=== PATIENT | female | born 1960 | race Caucasian/White ===

== ENCOUNTER 2018-05-03 08:40 | Inpatient (IN) | payer MEDICARE ==
[2018-05-03 09:34] LABS: ALT (SGPT) 126 U/L (8-55); AST (SGOT) 60 U/L (5-34); Albumin 4.7 g/dL (3.5-5.0); Alkaline Phosphatase 190 U/L (40-150); Anion Gap 16 mmol/L (10-20); BUN (Urea Nitrogen) 17 mg/dL (9.8-20.1); Bilirubin, Total 0.6 mg/dL (0.2-1.2); CK (CPK) 83 U/L (29-168); Calc. Creatinine Clearance 0 mL/min (70-130); Calcium 10.1 mg/dL (7.8-10.44); Carbon Dioxide 23 mmol/L (22-29); Chloride 104 mmol/L (98-107); Estimated GFR-MDRD 60; Globulin 2.9 g/dL (2.4-3.5); Glucose 111 mg/dL (70-105); Lipase 65 U/L (8-78); Potassium 3.9 mmol/L (3.5-5.1); Protein, Total 7.6 g/dL (6.0-8.3); Sodium 139 mmol/L (136-145)
[2018-05-03 09:38] LABS: CKMB 1.7 ng/mL (0-6.6); Troponin I Less than 0.010 ng/mL (< 0.028)
[2018-05-03 09:40] LABS: #Basophils 0.2 thou/uL (0.0-0.2); #Eosinphils 0.3 thou/uL (0.0-0.7); #Lymphocytes 4.2 thou/uL (1.20-3.40); #Monocytes 0.7 thou/uL (0.11-0.59); #Neutrophils 6.8 thou/uL (1.40-6.50); %Basophils 1.4 % (0.0-1.0); %Eosinophils 2.4 % (0.0-10.0); %Lymphocytes 34.5 % (21.0-51.0); %Monocytes 5.4 % (0.0-10.0); %Neutrophils 56.2 % (42.0-75.0); Mean Corpuscular HGB CONC 33.4 g/dL (32.0-36.0); Mean Corpuscular Hemoglobin 30.8 pg (27.0-31.0); Mean Corpuscular Volume 92.2 fL (78.0-98.0); Mean Platelet Volume 7.4 fL (7.4-10.4); Platelet Count 377 thou/uL (130-400); RBC Distribution Width 14.4 % (11.5-14.5); Red Blood Cell (RBC) Count 5.18 mill/uL (4.20-5.40)
[2018-05-03] MEDS ORDERED: Nitroglycerin 2% Ointment 1 INCH/1 GM Packet ONE (09:41)
[2018-05-03] MEDS ORDERED: Labetalol HCl 100 MG/20 ML VIAL ONE (10:26)
[2018-05-03] MEDS ORDERED: ISOVUE-370 76%-LOCM 1 ML ONE (10:47)
[2018-05-03 12:19] LABS: CKMB 1.8 ng/mL (0-6.6); Troponin I 0.032 ng/mL (< 0.028)
--- NOTE | 2018-05-03 12:21 | RAD ---
RADIOGRAPH CHEST 1 VIEW: HISTORY: A 57-year-old female with chest pain. FINDINGS: There are no air space densities, pulmonary edema, pneumothorax, or cardiomegaly. The lateral costop hrenic angles are sharp. IMPRESSION: No acute cardiopulmonary findings. jn [] POS: ELLI
--- NOTE | 2018-05-03 13:43 | CT ---
CTA THORAX WITH CONTRAST CTA ABDOMEN WITH CONTRAST: (Computed Tomographic Angiography, chest(noncoronary) with contrast material, and image postprocessin g) (Computed Tomographic Angiography, abdomen with contrast material, and image postprocessing) DATE: 05/03/18. HISTORY: A 57-year-old female with chest pain. Rule out thoracic and abdominal aortic aneurysm or dissection. TECHNIQUE: IV injection of iodinated contrast: 100 mL of Isovue 370. Arterial phase bolus chasing technique. Scan acquisition from top of top of aortic arch to iliac crests. 3D MIP reconstructions. FINDINGS: There is mild ectasia and tortuosity of the thoracic aorta, but no aneurysm or dissection there. The re is moderate to severe atherosclerosis with calcified and noncalcified plaque throughout the infrar enal abdominal aorta, which is tortuous and ectatic. There is a focal sacular left lateral and anter ior outpouching of the infrarenal abdominal aorta. The cross-sectional AP and oblique transverse dim ensions are 2.5 x 2.2 cm. No dissection. The prominent atherosclerotic disease extends into the anselmo ateral common iliac arteries and into the proximal aspects of the internal iliac arteries. No high-g rade stenosis of the celiac artery, superior mesenteric artery, or bilateral main renal arteries. Th ere is an accessory right renal artery supplying the lower pole of the right kidney, originating from the right side of the abdominal aorta 4 cm inferior to the origin of the right renal upper pole brook l artery. The right kidney is elongated in the craniocaudal dimension. No hydronephrosis. Diffusel y heterogeneous enhancement of the liver, probably due to perfusion anomalies and/or heterogeneously distributed fatty liver. No splenomegaly. Normal pancreas. No adrenal nodule. No small bowel dila tion. No pleural effusion or pneumothorax. Lung apices were not included on this scan. No consolid ation or pulmonary edema. No mediastinal or hilar lymphadenopathy. There happens to be excellent IV contrast opacification of the pulmonary arteries, in addition to the aorta. There is no pulmonary t hromboembolism. Thoracic and lumbar vertebral body heights are maintained, with no compression fracture. IMPRESSION: 1. No aortic aneurysm, dissection, or rupture. 2. Moderately severe atherosclerosis of distal, infrarenal abdominal aorta, where there is a saccula r dilation, which does not quite have the dimension of aneurysm. 3. Hepatic steatosis. 4. No acute findings. jn[] POS: ELLI
--- NOTE | 2018-05-03 14:26 | PDOC.FPRHP ---
- History of Present Illness Chief Complaint: chest pain History of Present Illness: 57 yo F with PMH of cardiac cath with stent placement in 2017 presents with acute onset of left sided substernal chest pressure and mid-back pain. At around 0900 this morning she was walking when she experienced acute onset of substernal chest pressure and concomitant mid-back pain. The back pain was started in the midback and radiated to down her left arm and up her left jaw. She had associated SOB, ALAS, vision floaters and nausea; denied diaphoresis. No aggravating or alleviating factors. She rated the pain as 14/10. She was able to walk back home, take a dose of nitro which did not relieve the pain. She took her blood pressure which was "really high" and prompted her to come to the ED. She reports compliance with all of her cardiac home meds and was able to take her morning dose of all meds. ED Course: In the ED she received Nitro, nitro paste and morphine with no relief of pain. Her initial blood pressures were in the 200s and decreased with IV labetalol 10 down to 160s, but increased back up to 190s. CTA was negative for aortic dissection and PE. EKG showed bifascicular block, no ST segment elevations. Initial trops were negative. Subsequent trop trends were positive which qualified her for STEMI. She also complained of SOB and has a hx of COPD so was given duonebs x1 with clinical improvement. - Allergies/Adverse Reactions Allergies Allergy/AdvReac Type Severity Reaction Status Date / Time adhesive Allergy Verified 05/03/18 16:53 amlodipine Allergy Verified 05/03/18 16:25 levofloxacin [From Levaquin] Allergy Verified 05/03/18 16:25 lithium Allergy Verified 05/03/18 16:25 penicillamine Allergy Verified 05/03/18 16:25 - Home Medications Medication Instructions Recorded Confirmed Type Aspirin [Aspirin Chewable] 81 mg PO DAILY 05/03/18 05/03/18 History FLUoxetine HCl 20 mg PO DAILY 05/03/18 05/03/18 History Fluticasone/Vilanterol [Breo 200 mcg INH DAILY 05/03/18 05/03/18 History Ellipta 200-25 Mcg INH] Metoprolol Tartrate 25 mg PO BID 05/03/18 05/03/18 History Montelukast Sodium 10 mg PO HS 05/03/18 05/03/18 History Pramipexole Di-HCl [Pramipexole 0.5 mg PO QPM 05/03/18 05/03/18 History Dihydrochloride] Promethazine [Phenergan] 25 mg PO Q6HR PRN 05/03/18 05/03/18 History QUEtiapine Fumarate [Seroquel] 25 mg PO 05/03/18 History Ticagrelor [Brilinta] 90 mg PO BID 05/03/18 05/03/18 History Ventolin HFA Inhaler 90 mcg INH Q4HR PRN 05/03/18 05/03/18 History clonazePAM [Clonazepam] 1 mg PO 05/03/18 History - History PMHx:COPD, cardiac cath with stents x4, PTSD, anxiety, depression, bipolar, HLD , HTN PSHx: RUE extremity plates, rotator cuff surgery x2, bladder suspension, cholecytectomy, umbilical hernia repair FHx:[place] in 2 other sisters Social: 4 cigs/day x 17 years, 1-2 beers during the week, uses CBD oil - Review of Systems General: denies: fever/chills, weight/appetite/sleep changes Eyes: reports: vision changes ENT: reports: nasal congestion. denies: rhinorrhea Respiratory: reports: shortness of breath. denies: cough, congestion Cardiovascular: reports: chest pain (chest pressure) Gastrointestinal: reports: nausea, constipation, abdominal pain. denies: vomiting, diarrhea Skin: denies: rashes, lesions Musculoskeletal: reports: pain (back pain). denies: tenderness Neurological: denies: numbness, syncope Psychological: reports: anxiety - Vital signs BP: 151/103 HR: 85 RR: 14 Tmax: 97.2 Pox: 99% on 2 LPM Wt: [54.2] - Physical Exam Constitutional: awake, alert and oriented -Constitutional: acute distress due to pain HEENT: normocephalic and atraumatic Neck: supple Chest: no-tender to palpation Heart: RRR, normal S1/S2 Lungs: CTAB, no respiratory distress Abdomen: soft, no masses/distention, no hernias -Abdomen: epigastric tendrenss to palpation, hyperactive bowel sounds Musculoskeletal: normal structure -Musculoskeletal: back pain worse with palpation Neurological: CN II-XII intact Skin: no rash/lesions Heme/Lymphatic: no unusual bruising or bleeding FMR H&P: Results - Labs Result Diagrams: 05/06/18 04:33 05/06/18 04:33 Lab results: WBC 12.0 thou/uL (4.8-10.8) H 05/03/18 08:50 Hgb 16.0 g/dL (12.0-16.0) 05/03/18 08:50 Hct 47.8 % (36.0-47.0) H 05/03/18 08:50 MCV 92.2 fL (78.0-98.0) 05/03/18 08:50 Plt Count 377 thou/uL (130-400) 05/03/18 08:50 Neutrophils % 56.2 % (42.0-75.0) 05/03/18 08:50 Sodium 139 mmol/L (136-145) 05/03/18 08:50 Potassium 3.9 mmol/L (3.5-5.1) 05/03/18 08:50 Chloride 104 mmol/L (98-107) 05/03/18 08:50 Carbon Dioxide 23 mmol/L (22-29) 05/03/18 08:50 BUN 17 mg/dL (9.8-20.1) 05/03/18 08:50 Creatinine 0.95 mg/dL (0.6-1.1) 05/03/18 08:50 Glucose 111 mg/dL (70-105) H 05/03/18 08:50 Calcium 10.1 mg/dL (7.8-10.44) 05/03/18 08:50 Total Bilirubin 0.6 mg/dL (0.2-1.2) 05/03/18 08:50 AST 60 U/L (5-34) H 05/03/18 08:50 ALT 126 U/L (8-55) H 05/03/18 08:50 Alkaline Phosphatase 190 U/L (40-150) H 05/03/18 08:50 Creatine Kinase 83 U/L (29-168) 05/03/18 08:50 CK-MB (CK-2) 1.8 ng/mL (0-6.6) 05/03/18 11:42 Serum Total Protein 7.6 g/dL (6.0-8.3) 05/03/18 08:50 Albumin 4.7 g/dL (3.5-5.0) 05/03/18 08:50 Lipase 65 U/L (8-78) 05/03/18 08:50 - EKG Interpretation EKG: RRR, no ST elevations - Radiology Interpretation CT scan - chest Status: report reviewed by me (no CTA, no PE, no bowel dilation) FMR H&P: A/P - Problem List (1) NSTEMI (non-ST elevated myocardial infarction) Current Visit: Yes Status: Acute Code(s): I21.4 - NON-ST ELEVATION (NSTEMI) MYOCARDIAL INFARCTION (2) COPD (chronic obstructive pulmonary disease) Current Visit: Yes Status: Acute (3) Bipolar 1 disorder Current Visit: Yes Status: Acute Code(s): F31.9 - BIPOLAR DISORDER, UNSPECIFIED (4) Depression Current Visit: Yes Status: Acute Code(s): F32.9 - MAJOR DEPRESSIVE DISORDER , SINGLE EPISODE, UNSPECIFIED (5) Anxiety Current Visit: Yes Status: Acute Code(s): F41.9 - ANXIETY DISORDER, UNSPECIFIED (6) Hyperlipidemia Current Visit: Yes Status: Acute Code(s): E78.5 - HYPERLIPIDEMIA, UNSPECIFIED - Plan 48 yo F with h/o of cardiac cath with stents x4 here with hypertensive urgency and NSTEMI 1. NSTEMI -Cardiology consulted, appreciate recs -Nitro drip started for persistent chest pressure -Trend troponins -Aspirin, Brilinta, Th lovenox -Echo *Hold on statin, pt. reported history of being in "comatose state" and doesn't want to take it 2. Hypertensive urgency -Goal BP <160/<100 -Hydralazine and labetalol PRN -Continue home metoprolol, will receive evening dose 3. Hx of drug abuse -UDS 4. HLD -not on statin for above mentioned reasoned 5. COPD -Continue home meds -Will add on duonebs prn and mucolytic -Will continue NC at 2LPM 6. Bipolar disorder -Continue home meds 7. Depression -Continue home meds 8. Anxiety -Continue klonipin 1mg po BID 9. Gastritis -Home meds 10. RLS -Home meds DVT ppx: Th lovenox GI ppx: Pantoprazole FMR H&P: Upper Level - Plan Date/Time: 05/03/181425 I, [], have evaluated this patient and agree with findings/plan as outlined by medical intern resident. Pertinent changes/additions are listed here. Attending Addendum - Attending Addendum Date/Time: 05/03/181428 I personally evaluated the patient and discussed the management with Dr. Tijerina and Dr. Moses I agree with the History, Examination, Assessment and Plan documented above with any addition or exceptions noted below. 57 yo female with multiple medical conditions including significant cardiovascular disease with known CAD presents to ER for evaluation of typical CP. Patient reports this AM during a morning walk she experience substernal radiated chest pressure. Rated 10/10 to 14/10 pain. Radiated to left arm, left jaw, and between her shoulder blades. Associated with nausea and SOB. States feels similar to chest pain in the past prior to stent placement. Reports once she made it back home she took her BP which was "very high." Patient did not remember number. State took all medications this AM. Proceed to walk to ER for evaluation. Denies palpitations, dizziness, vomiting, diaphoresis. VS reviewed. Labs reviewed. Imaging reviewed. GEN: In no acute distress on exam. Lungs: CTA bilaterally. No wheezing or crackles. Currently receiving Neb. CV: RRR, no murmurs. JVD pos. No bruits. HTN urgency with known CAD: Admit to IMCU. Continue to control BP with IV meds and oral. Place on CCB drip as needed. Trend trop levels to rule out NSTEMI. CT negative. Continue home meds including BB and antiplatelet. Patient refusing statin due reported side effect of "comatosed state." Trend tele monitoring and EKGs. Check TSH and UDS. ECHO. Possible cards consult vs medical stress. However , due to all physical activity not sure if patient has significant obstruction but will continue to trend trop and EKG. Hepatic steatosis: Elevated LFTs. Trend. Discuss diet, medication and alcohol use. Rule out viral causes. Substance abuse: Daily and chronic tobacco and cannibus use. UDS pending. Obtain card records from previous transfusion nurse. Amy
[2018-05-03] MEDS ORDERED: Guaifenesin DM 100-10/5 ML UDCUP PO PRN (14:39)
[2018-05-03] MEDS ORDERED: Ondansetron ODT 4 MG TAB PO PRN (14:39)
[2018-05-03] MEDS ORDERED: Acetaminophen 325 MG TAB PO PRN (14:39)
[2018-05-03] MEDS ORDERED: Labetalol HCl 100 MG/20 ML VIAL SLOW IVP PRN (14:51)
[2018-05-03] MEDS ORDERED: Labetalol HCl 100 MG/20 ML VIAL SLOW IVP SCH (15:00)
[2018-05-03 15:50] LABS: Troponin I 0.346 ng/mL (< 0.028)
[2018-05-03 16:36] VITALS: BMI 21.2
[2018-05-03] MEDS ORDERED: Aspirin 300 MG Suppository PR SCH (17:00)
[2018-05-03] MEDS ORDERED: Nitroglycerin 50 MG/250 ML BOT 250 ML IVPB SCH (17:15)
[2018-05-03] MEDS ORDERED: hydrALAZINE 20 MG/ML VIAL SLOW IVP PRN (17:24)
[2018-05-03 17:48] LABS: Medtox Reader # READER 1; THC/Cannabinoid Screen Detected (NotDetected)
[2018-05-03 17:49] LABS: Amphetamine Not Detected (NotDetected); Barbiturates Screen Not Detected (NotDetected); Benzodiazepine Screen Detected (NotDetected); Cocaine Metabolite Screen Not Detected (NotDetected); Medtox Control Line Valid? VALID (VALID); Methadone Not Detected (NotDetected); Methamphetamine Not Detected (NotDetected); Opiate Screen Not Detected (NotDetected); Oxycodone Screen Not Detected (NotDetected); Phencyclidine (PCP) Not Detected (NotDetected); Tricyclic Screen Not Detected (NotDetected)
[2018-05-03] MEDS ORDERED: Promethazine HCl 25 MG/ML VIAL IM/IV ONE (18:43)
[2018-05-03] MEDS ORDERED: diphenhydrAMINE 50 MG/ML VIAL IVP SCH (18:44)
[2018-05-03 19:39] LABS: Troponin I 0.598 ng/mL (< 0.028)
[2018-05-03] MEDS: Montelukast Sodium 10 mg Tablet PO SCH (20:33)
[2018-05-03] MEDS: Enoxaparin Sodium 60 MG/0.6 ML SYRINGE SC SCH (20:33)
[2018-05-03] MEDS: clonazePAM 1 MG TAB PO SCH (20:33)
[2018-05-03] MEDS: Pramipexole Di-HCl 0.25 MG TAB PO SCH (20:43)
[2018-05-03] MEDS: TICAGRELOR 90 MG TABLET PO SCH (20:43)
[2018-05-03] MEDS: Metoprolol Tartrate 50 MG TAB PO SCH (20:47)
[2018-05-03 23:12] LABS: Critical Call Chem Troponin I RESULT DECREASING; Troponin I 0.536 ng/mL (< 0.028)
[2018-05-04 05:19] LABS: #Basophils 0.1 thou/uL (0.0-0.2); #Eosinphils 0.2 thou/uL (0.0-0.7); #Lymphocytes 1.6 thou/uL (1.20-3.40); #Monocytes 0.5 thou/uL (0.11-0.59); #Neutrophils 4.7 thou/uL (1.40-6.50); %Basophils 0.9 % (0.0-1.0); %Eosinophils 2.5 % (0.0-10.0); %Lymphocytes 22.6 % (21.0-51.0); %Monocytes 7.1 % (0.0-10.0); %Neutrophils 66.9 % (42.0-75.0); Hemoglobin 14.9 g/dL (12.0-16.0); Mean Corpuscular HGB CONC 33.1 g/dL (32.0-36.0); Mean Corpuscular Hemoglobin 31.2 pg (27.0-31.0); Mean Platelet Volume 7.7 fL (7.4-10.4); Platelet Count 301 thou/uL (130-400); RBC Distribution Width 14.3 % (11.5-14.5); Red Blood Cell (RBC) Count 4.79 mill/uL (4.20-5.40)
[2018-05-04 05:33] LABS: ALT (SGPT) 242 U/L (8-55); AST (SGOT) 212 U/L (5-34); Albumin 4.2 g/dL (3.5-5.0); Alkaline Phosphatase 238 U/L (40-150); Anion Gap 14 mmol/L (10-20); BUN (Urea Nitrogen) 12 mg/dL (9.8-20.1); Bilirubin, Total 0.7 mg/dL (0.2-1.2); Calc. Creatinine Clearance 68 mL/min (70-130); Calcium 9.5 mg/dL (7.8-10.44); Carbon Dioxide 23 mmol/L (22-29); Cardiac Risk 4.9 (Less than 4.5); Chloride 107 mmol/L (98-107); Cholesterol 321 mg/dl (< 200 Desired); Estimated GFR-MDRD 78; Globulin 2.8 g/dL (2.4-3.5); Glucose 108 mg/dL (70-105); HDL Cholesterol 65 mg/dL (>60 Neg Risk); LDL Cholesterol, Calculated 217 mg/dL; Potassium 4.4 mmol/L (3.5-5.1); Sodium 140 mmol/L (136-145); Triglycerides 195 mg/dL (Less than 150)
[2018-05-04 05:38] LABS: CKMB 5.8 ng/mL (0-6.6); Troponin I 0.229 ng/mL (< 0.028)
--- NOTE | 2018-05-04 06:33 | PDOC.FM ---
- Subjective Subjective: No acute events overnight. Still has left sided chest pressure but improved / 10 from 04/07. Still has epigastric pain, improved. nitro drip was started yesterday but discontinued b/c chest pressure had resolved, per nurse. was being given morhpine x1 for CPressure, instructed to put back on nitro drip if morhpine doesn't resolve pressure - Objective MAR Reviewed: Yes Vital Signs & Weight: Vital Signs (12 hours) Temp Pulse Resp Pulse Ox 05/04/18 03:00 98.0 F 05/03/18 23:36 96 05/03/18 23:00 98.3 F 05/03/18 19:15 97.5 F L 75 17 97 05/03/18 19:00 97.5 F L 05/03/18 18:36 85 Weight Weight 54.2 kg Most Recent Monitor Data Heart Rate from ECG 61 NIBP 110/68 NIBP BP-Mean 77 Respiration from ECG 23 SpO2 97 I&O: 05/02/18 05/03/18 05/04/18 06:59 06:59 06:59 Intake Total 102.8 Output Total 450 Balance -347.2 Result Diagrams: 05/04/18 04:59 05/04/18 04:59 <Dee Tijerina - Last Filed: 05/04/18 11:29> - Objective Vital Signs & Weight: Vital Signs (12 hours) Temp Pulse Resp Pulse Ox 05/04/18 08:12 98.6 F 05/04/18 08:00 98.6 F 75 16 98 05/04/18 03:00 98.0 F Weight Weight 54.2 kg Most Recent Monitor Data Heart Rate from ECG 63 NIBP 101/67 NIBP BP-Mean 85 Respiration from ECG 10 SpO2 96 I&O: 05/03/18 05/04/18 05/05/18 06:59 06:59 06:59 Intake Total 102.8 Output Total 450 150 Balance -347.2 -150 Result Diagrams: 05/04/18 04:59 05/04/18 04:[address] <[address] - Last Filed: 05/04/18 13:00> Phys Exam - Physical Examination mild distress HEENT: TM's clear Neck: supple left cervical tenderness Cardiovascular: RRR tenderness to palpation at mid thoracic spine and approximate paraspinal mm Neurological: moves all 4 limbs Psychiatric: A&O x 3 Skin: no rash, cap refill <2 seconds <Dee Tijerina - Last Filed: 05/04/18 11:29> Dx/Plan (1) NSTEMI (non-ST elevated myocardial infarction) Code(s): I21.4 - NON-ST ELEVATION (NSTEMI) MYOCARDIAL INFARCTION Status: Acute (2) COPD (chronic obstructive pulmonary disease) Status: Acute (3) Bipolar 1 disorder Code(s): F31.9 - BIPOLAR DISORDER, UNSPECIFIED Status: Acute (4) Depression Code(s): F32.9 - MAJOR DEPRESSIVE DISORDER, SINGLE EPISODE, UNSPECIFIED Status : Acute (5) Anxiety Code(s): F41.9 - ANXIETY DISORDER, UNSPECIFIED Status: Acute (6) Hyperlipidemia Code(s): E78.5 - HYPERLIPIDEMIA, UNSPECIFIED Status: Acute - Plan Plan: 48 yo F with h/o of cardiac cath with stents x4 here with hypertensive urgency and NSTEMI 1. NSTEMI -Cardiology consulted, appreciate recs -Aspirin, Brilinta, Th lovenox, nitro drip for persistent chest pressure -Trops down trending, recheck trop at 0800 -Echo pending *Hold on statin, pt. reported history of being in "comatose state" and doesn't want to take it. Discussed with patient -cath today 2. Hypertensive urgency -stable -Hydralazine and labetalol PRN -Nitro drip -Continue home metoprolol, will receive evening dose 3. Back pain -most likely MSK due to paraspinal tenderness -h/o of torticollis -will try flexeril 3. Hx of drug abuse -UDS + for cannabinoids, benzos -non contributory to chest pain 4. HLD -not on statin for above mentioned reasoned 5. COPD -Continue home meds -duonebs prn and mucolytic 6. Bipolar disorder -Continue home meds 7. Depression -Continue home meds 8. Anxiety -Continue klonipin 1mg po BID 9. Gastritis -protonix 10. RLS -Home meds DVT ppx: Th lovenox GI ppx: Pantoprazole Discussed with Dr. St <Dee Tijerina - Last Filed: 05/04/18 11:29> Attending Addendum - Attending Addendum Date/Time: 05/04/18 [id number] I personally evaluated the patient and discussed the management with Dr. Tijerina. I agree with the History, Examination, Assessment and Plan documented above with any addition or exceptions noted below. Patient with nstemi on nigtro drip in ICU. She is still having chest pain and drip has been increased. Cardiology is planning cath later today. <Aide St - Last Filed: 05/04/18 13:00>
[2018-05-04] MEDS: clonazePAM 1 MG TAB PO SCH ×2 (07:56→20:05)
[2018-05-04] MEDS: Metoprolol Tartrate 50 MG TAB PO SCH ×2 (07:56→21:05)
[2018-05-04] MEDS: FLUoxetine HCl 20 MG CAP PO SCH (07:57)
[2018-05-04] MEDS: TICAGRELOR 90 MG TABLET PO SCH ×3 (08:18→20:06)
[2018-05-04] MEDS: Enoxaparin Sodium 60 MG/0.6 ML SYRINGE SC SCH ×2 (08:18→20:05)
[2018-05-04 08:44] LABS: Troponin I 0.205 ng/mL (< 0.028)
[2018-05-04] MEDS ORDERED: Enoxaparin Sodium 40 MG/0.4 ML SYRINGE SC SCH (09:00)
[2018-05-04] MEDS ORDERED: Iopamidol 370 76% 100 ML VIAL ONE (10:20)
--- NOTE | 2018-05-04 11:31 | CON ---
DATE OF CONSULTATION: 05/04/2018 HISTORY: This is a 57-year-old female from [place], moved to the local area to stay with his sis joaquin. She developed chest pain, shortness of breath yesterday lasting for 45 minutes. Pain was simil ar to her previous [place] 09/2016. She has 4 stents inserted. She is still smoking half a pack a day. She has COPD. Denies any difficulty breathing, fever, or ch ills. She was admitted to the ICU, the reason for consultation. PAST MEDICAL HISTORY: Coronary artery disease, hypertension, bipolar, COPD, hyperlipidemia. PAST SURGICAL HISTORY: Multiple abdominal surgeries, hysterectomy, rotator cuff surgery. MEDICATIONS: Medicine from home includes aspirin 81, Prozac 20, Seroquel 50, Klonopin 1, metoprolol 50, Brilinta 90, Breo inhaler 100 once a day, Ventolin inhaler as needed. ALLERGIES: Multiple; AMLODIPINE, LEVAQUIN, LITHIUM, PENICILLAMINE. SOCIAL HISTORY: She is disabled from bipolar. REVIEW OF SYSTEMS: Otherwise unremarkable. PHYSICAL EXAMINATION: GENERAL: Awake, alert, responsive, in no distress. VITAL SIGNS: Blood pressure 150/70, pulse 80, respiratory 18, afebrile. CHEST: Chest revealed decreased breath sounds, no wheezing. CARDIAC: Normal S1, S2. No gallops. ABDOMEN: Soft, no masses. LABORATORY AND X-RAY FINDINGS: Chest x-ray is clear. White count 10,000, H&H 14 and 45. Electrolytes are normal. Liver function, elevated. AST is 212, ALT is 242. Troponin is elevated at 0.205. She has got benzos and cannabinoids in her system. IMPRESSION: 1. Chest pain, coronary artery disease, rule out myocardial infarction. 2. Tobacco abuse. 3. Chronic obstructive pulmonary disease. 4. Bipolar. 5. Major anxiety. PLAN: Continue present cardiac care. Pulmonary will follow while in the ICU. At this stage, I advi sed her to refrain from smoking. We will follow while in the ICU.
[2018-05-04] MEDS ORDERED: Lidocaine 1% (PF) 30 ML VIAL ONE ×2 (11:34→13:09)
[2018-05-04] MEDS ORDERED: Midazolam HCl 2 mg/2 ml Vial ONE (12:17)
[2018-05-04] MEDS ORDERED: Fentanyl 100 MCG/2 ML VIAL ONE (12:23)
[2018-05-04] MEDS ORDERED: traMADol HCl 50 MG TAB PO PRN (12:43)
[2018-05-04] MEDS ORDERED: Acetaminophen/Codeine 30-300mg Tablet PO PRN ×2 (12:43)
[2018-05-04] MEDS ORDERED: Nitroglycerin 0.4 MG TAB (25 Tab Bottle) SL PRN (12:43)
[2018-05-04] MEDS ORDERED: Sodium Chloride 0.9% 200 ML IV SCH (12:45)
--- NOTE | 2018-05-04 12:49 | CON ---
DATE OF CONSULTATION: 05/03/2018 This will be a critical care note, time will be 40 minutes. HISTORY OF PRESENT ILLNESS: The patient is a 57-year-old woman with a history of coronary artery disease, who presents with recurrent chest discomfort. The patient has previously suffered a myocardial infarction. She has undergone PTCA and stent placement. In September 2016 she had an OK in [place]. She was found to have a totally occluded left circumflex artery, 70% OM lesion and 70% mid LAD lesion ,and the right coronary artery was diffusely diseased. The patient underwent PTCA and stent placement in the left circumflex artery. The patient has subsequently been on medical therapy. She has had recurrent episodes of chest discomfort. She states that she was in another hospital in October of this year with recurrent chest discomfort. She underwent a repeat catheterization. There was found to be no significant progression in her coronary artery disease. The patient was continued on medical therapy. She has not been followed up closely with her member services representative. She recently moved to town. She presents with recurrent chest discomfort. PAST MEDICAL HISTORY: 1. Coronary artery disease. 2. Hypertension. 3. Dyslipidemia. 4. Bipolar disorder. 5. A history of pseudoaneurysm. PAST SURGICAL HISTORY; SOCIAL HISTORY: Long history of tobacco abuse. ALLERGIES: LEVOFLOXACIN, AMLODIPINE, ADHESIVE TAPE, LITHIUM, PENICILLAMINE. MEDICATIONS ON ADMISSION: Metoprolol 25 b.i.d., Brilinta 90 b.i.d., aspirin 81 daily, Prozac 20 daily, and Seroquel 25 daily. PHYSICAL EXAMINATION: GENERAL: Anxious woman in acute distress. VITAL SIGNS: Blood pressure 151/103. NECK: No jugular venous distention. LUNGS: Coarse breath sounds bilateral. HEART: Regular rate and rhythm. Normal S1 and S2. ABDOMEN: Nondistended. EXTREMITIES: Show no edema. LABORATORY DATA: Sodium 129, potassium 3.9, chloride 104, bicarbonate 23, BUN 17, creatinine is 0.95, glucose 111, AST was 126. CPK MB was 1.8, troponin 0.346. Her white blood cell count 12.0, hemoglobin 16.0, hematocrit 47.8, and her platelets were 377. Her EKG revealed her to have normal sinus rhythm with nonspecific intraventricular conduction delay, no acute ST-T-wave changes. IMPRESSION: 1. Hypertensive crisis. 2. Coronary artery disease. 3. History of percutaneous transluminal coronary angioplasty and stent placement. 4. Hypertension. 5. Dyslipidemia. 6. Bipolar disorder. This patient presents with a hypertensive crisis. Her cardiac enzymes revealed minimal elevation of her troponin level. The patient states she underwent a repeat catheterization just a few months ago, which did not show significant coronary artery disease. The patient, at this time, would like to initially be placed on medical therapy. The patient will be transferred to the ICU. She will be placed on IV nitroglycerin. Further recommendation will follow. SIMEON
[2018-05-04] MEDS ORDERED: Cyclobenzaprine 10 MG TAB PO SCH (16:30)
[2018-05-04] MEDS: Mometasone/Formoterol 120 PUFF INHALER INH SCH (18:33)
[2018-05-04] MEDS: Pramipexole Di-HCl 0.25 MG TAB PO SCH (20:05)
[2018-05-04] MEDS: Montelukast Sodium 10 mg Tablet PO SCH (20:05)
--- NOTE | 2018-05-04 20:31 | PDOC.EVN ---
Event Note - Event Note Event Note: had conversation with patient about starting her on a statin. explained to her the benefits and importance of taking the medication. discussed patients worries and addressed them but patient still refuses to take it understanding the risk of suffering from another cardiac event.
[2018-05-05] MEDS ORDERED: Cyclobenzaprine 10 MG TAB PO PRN (05:18)
[2018-05-05 05:19] LABS: #Basophils 0.1 thou/uL (0.0-0.2); #Eosinphils 0.3 thou/uL (0.0-0.7); #Monocytes 0.8 thou/uL (0.11-0.59); #Neutrophils 3.4 thou/uL (1.40-6.50); %Basophils 1.6 % (0.0-1.0); %Lymphocytes 39.7 % (21.0-51.0); %Monocytes 10.3 % (0.0-10.0); %Neutrophils 44.4 % (42.0-75.0); Mean Corpuscular HGB CONC 33.6 g/dL (32.0-36.0); Mean Corpuscular Hemoglobin 31.7 pg (27.0-31.0); Mean Corpuscular Volume 94.5 fL (78.0-98.0); Mean Platelet Volume 7.7 fL (7.4-10.4); Platelet Count 265 thou/uL (130-400); RBC Distribution Width 14.1 % (11.5-14.5); Red Blood Cell (RBC) Count 4.41 mill/uL (4.20-5.40); White Blood Cell (WBC) Count 7.6 thou/uL (4.8-10.8)
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
[2018-05-05 05:46] LABS: ALT (SGPT) 168 U/L (8-55); AST (SGOT) 118 U/L (5-34); Albumin 3.8 g/dL (3.5-5.0); Alkaline Phosphatase 216 U/L (40-150); Anion Gap 11 mmol/L (10-20); BUN (Urea Nitrogen) 9 mg/dL (9.8-20.1); Bilirubin, Total 0.6 mg/dL (0.2-1.2); Calc. Creatinine Clearance 72 mL/min (70-130); Carbon Dioxide 26 mmol/L (22-29); Chloride 105 mmol/L (98-107); Estimated GFR-MDRD 83; Globulin 2.4 g/dL (2.4-3.5); Glucose 108 mg/dL (70-105); Protein, Total 6.2 g/dL (6.0-8.3); Sodium 138 mmol/L (136-145)
[2018-05-05] MEDS: Enoxaparin Sodium 60 MG/0.6 ML SYRINGE SC SCH (08:26)
[2018-05-05] MEDS: clonazePAM 1 MG TAB PO SCH ×2 (08:26→20:41)
[2018-05-05] MEDS: TICAGRELOR 90 MG TABLET PO SCH ×2 (08:27→20:41)
[2018-05-05] MEDS: FLUoxetine HCl 20 MG CAP PO SCH (08:27)
[2018-05-05] MEDS: Mometasone/Formoterol 120 PUFF INHALER INH SCH ×2 (08:40→19:01)
--- NOTE | 2018-05-05 09:22 | PRG ---
DATE OF SERVICE: 05/05/2018 This morning she is awake, alert, responsive. Still having neck pain. She underwent a cardiac jaylon terization yesterday. Apparently I am told her stents were unremarkable. No new stents were placed. PHYSICAL EXAMINATION: VITAL SIGNS: Blood pressure 109/82, sats 96% on room air, respirations 18, pulse 80. CHEST: No wheezing. CARDIAC: Normal S1, S2, no gallops. ABDOMEN: Soft, no masses. LABORATORY: Abnormal LFTs noted. Otherwise, CBC unremarkable. Electrolytes are normal. IMPRESSION: 1. Coronary artery disease. 2. Chest pain. 3. Abnormal liver function tests. 4. Tobacco abuse. 5. Chronic obstructive pulmonary disease. PLAN: She can be transferred out of the ICU. Continue supportive care. She was told to refrain from smoking.
[2018-05-05] MEDS: Metoprolol Tartrate 50 MG TAB PO SCH ×3 (09:43→21:15)
[2018-05-05] MEDS: Methocarbamol 500 MG TAB PO PRN ×3 (09:47→21:15)
--- NOTE | 2018-05-05 11:44 | EKG ---
Test Reason : Blood Pressure : / mmHG Vent. Rate : 072 BPM Atrial Rate : 072 BPM P-R Int : 160 ms QRS Dur : 132 ms QT Int : 454 ms P-R-T Axes : 053 -67 104 degrees QTc Int : 497 ms Poor data quality, interpretation may be adversely affected Normal sinus rhythm Left bundle branch block Abnormal ECG No previous ECGs available Confirmed by AIDAN COONEY ([id number]) on 05/05/2018 11:44:20 AM Referred By: ОЛЕГ Confirmed By:AIDAN COONEY
--- NOTE | 2018-05-05 13:38 | ULT ---
FOCUSED VASCULAR ULTRASOUND OF THE LEFT INGUINAL REGION: DATE: 05/05/18. COMPARISON: None. HISTORY: Left catheterization yesterday, assess for hematoma or pseudoaneurysm. TECHNIQUE: Multiplanar, bo scale, sonographic imaging of the left inguinal vascular structures obtained with c olor flow and spectral analysis. FINDINGS: The left common femoral artery and the left common femoral vein are patent and demonstrate appropriat e arterial and venous waveforms respectively. There is no sonographic evidence of pseudoaneurysm or significant hematoma. IMPRESSION: Unremarkable focused vascular ultrasound of the left inguinal region. No sonographic evidence of sig nificant hematoma or arterial pseudoaneurysm. POS: [facility]
[2018-05-05 14:27] VITALS: BP 131/83
[2018-05-05] MEDS ORDERED: Methocarbamol 500 MG TAB PO PRN (15:52)
[2018-05-05] MEDS: Pramipexole Di-HCl 0.25 MG TAB PO SCH (20:40)
[2018-05-05] MEDS: Montelukast Sodium 10 mg Tablet PO SCH (20:41)
[2018-05-05] MEDS ORDERED: Rosuvastatin 20 MG TAB PO SCH (21:00)
[2018-05-05] MEDS ORDERED: Methocarbamol 500 MG TAB PO SCH ×2 (21:00)
[2018-05-05] MEDS ORDERED: diphenhydrAMINE 25 MG CAP PO PRN (23:41)
[2018-05-06 05:01] LABS: #Basophils 0.1 thou/uL (0.0-0.2); #Eosinphils 0.3 thou/uL (0.0-0.7); #Monocytes 0.9 thou/uL (0.11-0.59); #Neutrophils 4.3 thou/uL (1.40-6.50); %Basophils 1.3 % (0.0-1.0); %Eosinophils 3.2 % (0.0-10.0); %Lymphocytes 35.2 % (21.0-51.0); %Monocytes 10.2 % (0.0-10.0); %Neutrophils 50.2 % (42.0-75.0); Mean Corpuscular Hemoglobin 31.2 pg (27.0-31.0); Mean Corpuscular Volume 94.7 fL (78.0-98.0); Mean Platelet Volume 8.1 fL (7.4-10.4); Platelet Count 266 thou/uL (130-400); White Blood Cell (WBC) Count 8.5 thou/uL (4.8-10.8)
[2018-05-06 05:22] LABS: ALT (SGPT) 151 U/L (8-55); AST (SGOT) 98 U/L (5-34); Albumin 4.2 g/dL (3.5-5.0); Alkaline Phosphatase 221 U/L (40-150); Anion Gap 11 mmol/L (10-20); BUN (Urea Nitrogen) 8 mg/dL (9.8-20.1); Bilirubin, Total 0.6 mg/dL (0.2-1.2); Calc. Creatinine Clearance 65 mL/min (70-130); Carbon Dioxide 29 mmol/L (22-29); Chloride 106 mmol/L (98-107); Estimated GFR-MDRD 73; Globulin 2.9 g/dL (2.4-3.5); Glucose 106 mg/dL (70-105); Potassium 5.2 mmol/L (3.5-5.1); Protein, Total 7.1 g/dL (6.0-8.3); Sodium 141 mmol/L (136-145)
--- NOTE | 2018-05-06 06:15 | PDOC.FM ---
- Subjective Subjective: Pt. was crying in distress when I went to see her making claims "they think I"m trying to kill myself, why would they think that." She stated she was upset because she kept getting asked "do you want to hurt yourself" and said she was offended by that question that when she said she "was going to knock her head upside the wall" it was only a phrasing. She said chest pressure has resolved. Endorses left neck and back pain, significant improved with robaxin. No other complaints. - Objective MAR Reviewed: Yes Vital Signs & Weight: Vital Signs (12 hours) Temp Pulse Resp Pulse Ox 05/06/18 04:00 98.1 F 05/06/18 00:00 98.7 F 05/05/18 20:00 98.8 F 59 L 15 97 05/05/18 19:01 70 12 Weight Weight 54.2 kg Most Recent Monitor Data Heart Rate from ECG 59 NIBP 124/83 NIBP BP-Mean 100 Respiration from ECG 15 SpO2 97 I&O: 05/04/18 05/05/18 05/06/18 06:59 06:59 06:59 Intake Total 102.8 660 2150 Output Total 450 1100 2575 Balance -347.2 -440 -425 Result Diagrams: 05/06/18 04:33 05/06/18 09:31 <Dee Tijerina - Last Filed: 05/06/18 11:47> - Objective Vital Signs & Weight: Vital Signs (12 hours) Temp Pulse Resp 05/06/18 08:00 98.3 F 94 15 Weight Weight 54 kg Most Recent Monitor Data Heart Rate from ECG 68 NIBP 142/71 NIBP BP-Mean 98 Respiration from ECG 18 SpO2 97 I&O: 05/05/18 05/06/18 05/07/18 06:59 06:59 06:59 Intake Total 660 2150 600 Output Total 1100 2575 200 Balance -440 -425 400 Result Diagrams: 05/06/18 04:33 05/06/18 09:[address] <[address] - Last Filed: 05/06/18 19:43> Phys Exam - Physical Examination crying, upset, in distress HEENT: sclera anicteric, TM's clear Neck: supple Respiratory: no wheezing, no rales, no rhonchi, clear to auscultation bilateral Cardiovascular: RRR, no significant murmur Gastrointestinal: soft, non-tender Musculoskeletal: no edema, pulses present Neurological: non-focal, moves all 4 limbs Psychiatric: normal affect, A&O x 3 Skin: cap refill <2 seconds <BreezyDee - Last Filed: 05/06/18 11:47> Dx/Plan (1) NSTEMI (non-ST elevated myocardial infarction) Code(s): I21.4 - NON-ST ELEVATION (NSTEMI) MYOCARDIAL INFARCTION Status: Acute (2) COPD (chronic obstructive pulmonary disease) Status: Acute (3) Bipolar 1 disorder Code(s): F31.9 - BIPOLAR DISORDER, UNSPECIFIED Status: Acute (4) Depression Code(s): F32.9 - MAJOR DEPRESSIVE DISORDER, SINGLE EPISODE, UNSPECIFIED Status : Acute (5) Anxiety Code(s): F41.9 - ANXIETY DISORDER, UNSPECIFIED Status: Acute (6) Hyperlipidemia Code(s): E78.5 - HYPERLIPIDEMIA, UNSPECIFIED Status: Acute (7) NAFLD (nonalcoholic fatty liver disease) Status: Acute (8) PTSD (post-traumatic stress disorder) Code(s): F43.10 - POST-TRAUMATIC STRESS DISORDER, UNSPECIFIED Status: Acute (9) Gastritis Code(s): K29.70 - GASTRITIS, UNSPECIFIED, WITHOUT BLEEDING Status: Acute (10) Restless leg syndrome Status: Acute (11) Trapezius muscle spasm Code(s): M62.838 - OTHER MUSCLE SPASM Status: Acute (12) Passive suicidal ideations Code(s): R45.851 - SUICIDAL IDEATIONS Status: Acute - Plan Plan: 48 yo F with h/o of cardiac cath with stents x4 here with hypertensive urgency and NSTEMI 1. NSTEMI s/p cardiac cath -will follow up with dr. harris in clinic -Continue aspirin, Brilinta, Th lovenox, crestor 2. Hypertensive urgency -controlled with home metoprolol and clonazepam (anti-anxiolytic) -prn: hydralazine, labetalol 3. Muscle spasm of left trapezius muscle -improved with robaxin, continue -d/c morphine, add ibuprofen for pain control 4. HLD -d/c crestor. will receive outpt IM cholesterol lowering medication per DR. Harris 5. COPD -Continue home meds -duonebs prn and mucolytic 6. Bipolar disorder -Continue home meds 7. Depression -Continue home meds 8. Anxiety -Continue klonipin 1mg po BID 9. Gastritis -protonix 10. RLS -Home meds 11. Concern for self harm -[facility] consulted 12. Hyperkalemia -recheck K at 0800 -will give kayexalate x1 13. Elevtaed LFTs 2/2 NAFLD -trending down -d/c crestor DVT ppx: Th lovenox GI ppx: Pantoprazole Dispo:D/c pending MR clearance Discussed with Dr. St <Dee Tijerina - Last Filed: 05/06/18 11:47> Attending Addendum - Attending Addendum Date/Time: 05/06/181939 I personally evaluated the patient and discussed the management with Dr. Tijerina. I agree with the History, Examination, Assessment and Plan documented above with any addition or exceptions noted below. The patient was upset during rounds this morning. Her mom and sister were at the bedside. They wanted to take the patient home immediately. We explained that she needed clearance by [facility] prior to discharge. She stated that she would leave AMA. We explained that she couldn't leave until seen by [facility] after the threats of self-harm in prior days. The patient's nurse called that charge nurse in the ICU to come speak with the patient. We explained that MR was currently in the hospital seeing patient's and would see her as soon as they could. There was also concern about the patient's prozac dose. Per Dr. Tijerina, we took the patient's dose off her medication bottle. If cleared by [facility], the patient will leave with her sister and be going to the [facility]. <Aide St - Last Filed: 05/06/18 19:43>
[2018-05-06] MEDS: Mometasone/Formoterol 120 PUFF INHALER INH SCH (07:55)
[2018-05-06 07:56] VITALS: TEMP 98.3
[2018-05-06] MEDS: Metoprolol Tartrate 50 MG TAB PO SCH (07:58)
[2018-05-06] MEDS: clonazePAM 1 MG TAB PO SCH (07:58)
[2018-05-06] MEDS: FLUoxetine HCl 20 MG CAP PO SCH (07:58)
[2018-05-06] MEDS: TICAGRELOR 90 MG TABLET PO SCH (08:14)
[2018-05-06] MEDS: Methocarbamol 500 MG TAB PO PRN (08:15)
[2018-05-06] MEDS ORDERED: Ibuprofen 100 MG/5 ML UDCUP PO PRN (08:50)
--- NOTE | 2018-05-06 08:57 | PRG ---
DATE OF SERVICE: 05/06/2018 Cici Gomes remains in the ICU. Apparently, she has order for telemetry. She is tearful this yomini marge, but not giving us any reason why she is tearful. Denies any chest pain or shortness of breath. PHYSICAL EXAMINATION: VITAL SIGNS: Temperature 98, blood pressure is 122/62, sats 94%, respiration rate 18. CHEST: No wheezing. CARDIAC: Normal S1, S2. ABDOMEN: Soft, no masses. Her liver function is decreased. AST down to 98. Electrolytes are normal. White count is remarkable. IMPRESSION: 1. Coronary artery disease. 2. Bipolar disorder. 3. Chronic obstructive pulmonary disease. 4. Major anxiety. PLAN: She can be transferred out of the ICU. Once again advised her to refrain from smoking. Pleas e call Pulmonary if needed.
[2018-05-06] MEDS ORDERED: Betamethasone 0.1% Cream 15 GM TUBE TOP SCH (09:00)
[2018-05-06] MEDS ORDERED: Betamethasone 0.1% Cream 45 GM TUBE TOP SCH (09:00)
[2018-05-06] MEDS ORDERED: Methocarbamol 500 MG TAB PO PRN (09:45)
[2018-05-06 09:56] LABS: Potassium 3.7 mmol/L (3.5-5.1)
--- NOTE | 2018-05-08 11:39 | EKG ---
Test Reason : REPEAT Blood Pressure : / mmHG Vent. Rate : 071 BPM Atrial Rate : 071 BPM P-R Int : 142 ms QRS Dur : 126 ms QT Int : 400 ms P-R-T Axes : 032 -70 097 degrees QTc Int : 434 ms Normal sinus rhythm Possible Left atrial enlargement Right bundle branch block Left anterior fascicular block Bifascicular block Left ventricular hypertrophy with repolarization abnormality Abnormal ECG Confirmed by FERNANDA PURI DO ([id number]), index editor HI MONTIEL ([id number]) on 05/08/2018 11:38:54 AM Referred By: MICHAEL PURI Confirmed By:FERNANDA PURI DO
== END 2018-05-06 14:42 | disposition home or self-care (01) | DRG 281 ==
LOC: ERS 08:40 → ERHOLD 11:56 → IMCU/EMU 16:24 → CCU 18:00
PROVIDERS: ADMIT Family Medicine; ATTEND Family Medicine
PROC: 4A023N7 Measurement of Cardiac Sampling and Pressure, Left Heart, Percutaneous Approach (ICD-10-PCS; principal; 2018-05-04)
PROC: B211YZZ Fluoroscopy of Multiple Coronary Arteries using Other Contrast (ICD-10-PCS; 2018-05-04)
DX: I21.4 Non-ST elevation (NSTEMI) myocardial infarction (principal); R45.851 Suicidal ideations; I16.0 Hypertensive urgency; I25.110 Atherosclerotic heart disease of native coronary artery with unstable angina pectoris; F17.210 Nicotine dependence, cigarettes, uncomplicated; J44.9 Chronic obstructive pulmonary disease, unspecified; F31.9 Bipolar disorder, unspecified; F41.8 Other specified anxiety disorders; F43.10 Post-traumatic stress disorder, unspecified; E78.5 Hyperlipidemia, unspecified; F19.11 Other psychoactive substance abuse, in remission; K29.70 Gastritis, unspecified, without bleeding; I25.2 Old myocardial infarction; F12.10 Cannabis abuse, uncomplicated; Z95.5 Presence of coronary angioplasty implant and graft; G54.0 Brachial plexus disorders; G25.81 Restless legs syndrome; M62.838 Other muscle spasm; E87.5 Hyperkalemia; Z53.29 Procedure and treatment not carried out because of patient's decision for other reasons
CPT/HCPCS: 36415; 71045; 71275; 80053; 80061; 80306; 82550; 82553; 83690; 84484; 85025; 85379; 93005; 93010; 93306; 93458; 93798; 93976; 94640; 94760; 96374; 96375; 96376; 99152; 99153; A4216; C1769; J1644; J1650; J2001; J2250; J2270; J2550; J3010; J7620